=== PATIENT | female | born 1955 | race Caucasian/White ===

== ENCOUNTER 2019-10-13 08:31 | Emergency (ER) | payer OTHER ==
--- NOTE | 2019-10-13 08:54 | EDM.PDOC ---
ED HPI GENERAL MEDICAL PROBLEM - General Chief Complaint: Laceration Stated Complaint: FELL- CUT ON FOREHEAD Time Seen by Provider: 10/13/19 08:52 Source of Information: Reports: Patient, RN, RN Notes Reviewed History Limitations: Reports: No Limitations - History of Present Illness INITIAL COMMENTS - FREE TEXT/NARRATIVE: Pt presents to ER from home by POV with c/o tripping on the way to the bathroom this morning and fell to the floor cutting her forehead on the edge of the molding or the door. Denies LOC, neck pain, or any lightheadedness, chest pain or palpitations preceding the fall. Admits to a bruise on her left knee, but has full ROM and is ambulatory without pain. Denies use of Aspirin or blood thinners. Last Tetanus vaccine was in 2009. Onset: Today, Sudden Duration: Constant Location: Reports: Head Severity: Mild Improves with: Reports: None Worsens with: Reports: None Associated Symptoms: Reports: No Other Symptoms Head Pain Score (Numeric/FACES): 1 - Related Data Allergies Allergy/AdvReac Type Severity Reaction Status Date / Time Penicillins Allergy Cannot Verified 10/13/19 08:57 Remember Home Meds: Home Meds Amitriptyline HCl 30 mg PO DAILY 09/27/13 [History] Eletriptan [Relpax] 40 mg PO DAILY PRN 09/27/13 [History] Fish Oil/[place]-3 Fatty Acids [Fish Oil 1,000 MG] 2 each PO ASDIRECTED 09/27/13 [ History] Naproxen 500 mg PO ASDIRECTED PRN 09/27/13 [History] Venlafaxine [Effexor XR] 150 mg PO DAILY 09/27/13 [History] Vitamin E 400 unit PO DAILY 09/27/13 [History] traMADol HCl [Ultram] 50 mg PO ASDIRECTED 09/27/13 [History] Levothyroxine Sodium [Synthroid] 25 mcg PO DAILY 09/17/18 [History] Lisinopril 20 mg PO DAILY 09/17/18 [History] Past Medical History - Past Health History Medical/Surgical History: Denies Medical/Surgical History HEENT History: Reports: Impaired Vision Cardiovascular History: Reports: High Cholesterol, Hypertension Musculoskeletal History: Reports: Fibromyalgia - Past Surgical History GI Surgical History: Reports: Appendectomy, Cholecystectomy Female Surgical History: Reports: Hysterectomy Musculoskeletal Surgical History: Reports: Shoulder Replacement Social & Family History - Family History Family Medical History: Noncontributory - Caffeine Use Caffeine Use: Reports: Coffee, Energy Drinks, Soda, Tea - Living Situation & Occupation Living situation: Reports: with Family ED ROS GENERAL - Review of Systems Review Of Systems: Comprehensive ROS is negative, except as noted in HPI. ED EXAM, SKIN/RASH Exam: See Below Exam Limited By: No Limitations General Appearance: Alert, WD/WN, No Apparent Distress Eye Exam: Bilateral Eye: EOMI, Normal Inspection, PERRL Nose: Normal Inspection, No Blood Throat/Mouth: Normal Inspection, Normal Lips, Normal Voice, No Airway Compromise Head: Normocephalic, Other (4cm vertical linear laceraton to midline forehead/ scalp to depth of subcutaneous tissue, no active bleeding, no FB.) Neck: Normal Inspection, Supple, Non-Tender, Full Range of Motion Respiratory/Chest: No Respiratory Distress Cardiovascular: Regular Rate, Rhythm Extremities: Normal Inspection Neurological: Alert, Oriented, CN II-XII Intact, Normal Cognition, Normal Gait, No Motor/Sensory Deficits Psychiatric: Normal Affect, Normal Mood ED SKIN PROCEDURES - Laceration/Wound Repair Midline Forehead Appearance: Subcutaneous, Linear, Clean Anesthetic Type: Local Local Anesthesia - Lidocaine (Xylocaine): 1% with EPI (10cc) Local Anesthesia - Bupivicaine (Marcaine): 0.5% with EPI (20cc) Skin Prep: Chlorhexidine (Hibiciens), Saline Saline Irrigation (cc's): 250 Exploration/Debridement/Repair: Wound Explored, In a Bloodless Field, Explored to Base, Minimal Debridement, Minimally Undermined Closed with: Sutures Lac/Wound length In cm: 9 Suture Size: 4-0 Suture Type: Nylon, Running Drain Placement: No Sterile Dressing Applied: None Tetanus Status Addressed: Yes Complications: No Course - Vital Signs Last Recorded V/S: Last Vital Signs Temp 97.5 F 10/13/19 08:49 Pulse 83 10/13/19 08:49 Resp 16 10/13/19 08:49 BP 149/70 H 10/13/19 08:49 Pulse Ox 97 10/13/19 08:49 - Orders/Labs/Meds Orders: Active Orders 24 hr Category Date Time Status Vaccines to be Administered [RC] PER UNIT ROUTINE Care 10/13/19 09:03 Active Meds: Medications Discontinued Medications Generic Name Dose Route Start Last Admin Trade Name Kody PRN Reason Stop Dose Admin Bacitracin 1 dose 10/13/19 09:03 10/13/19 09:12 Bacitracin Oint 1 Gm TOP 10/13/19 09:04 1 dose ONETIME ONE Administration Bupivacaine HCl 30 ml 10/13/19 09:18 10/13/19 09:19 Marcaine 0.5% INJECT 10/13/19 09:19 20 ml ONETIME ONE Administration Bupivacaine HCl Confirm 10/13/19 09:18 10/13/19 09:20 Marcaine 0.5% Administered 10/13/19 09:19 Not Given Dose 30 ml .ROUTE .STK-MED ONE Bupivacaine HCl/Epinephrine Bitart 20 ml 10/13/19 08:56 Marcaine 0.5%/Epinephrine 1:200,000 INJECT 10/13/19 08:57 ONETIME ONE Diphtheria/Tetanus/Acell Pertussis 0.5 ml 10/13/19 09:03 10/13/19 09:13 Adacel IM 10/13/19 09:04 0.5 ml .ONCE ONE Administration Lidocaine/Epinephrine 20 ml 10/13/19 08:56 10/13/19 09:12 Xylocaine 1% With Epinephrine 1:100,000 INJECT 10/13/19 08:57 20 ml ONETIME ONE Administration Departure - Departure Time of Disposition: 09:50 Disposition: Home, Self-Care 01 Condition: Good Clinical Impression: Laceration of forehead Qualifiers: Encounter type: initial encounter Qualified Code(s): S01.81XA - Laceration without foreign body of other part of head, initial encounter Fall as cause of accidental injury at home as place of occurrence Qualifiers: Encounter type: initial encounter Qualified Code(s): W19.XXXA - Unspecified fall, initial encounter - Discharge Information *PRESCRIPTION DRUG MONITORING PROGRAM REVIEWED*: No *COPY OF PRESCRIPTION DRUG MONITORING REPORT IN PATIENT ARMAND: No Instructions: Facial Laceration Forms: ED Department Discharge Additional Instructions: Follow up in clinic in 7 to 10 days for suture removal. Sepsis Event Note - Focused Exam Vital Signs: Vital Signs Temp Pulse Resp BP Pulse Ox 10/13/19 08:49 97.5 F 83 16 149/70 H 97 Date Exam was Performed: 10/13/19 Time Exam was Performed: 09:43 - My Orders Last 24 Hours: My Active Orders 10/13/19 09:03 Vaccines to be Administered [RC] PER UNIT ROUTINE - Assessment/Plan Last 24 Hours: My Active Orders 10/13/19 09:03 Vaccines to be Administered [RC] PER UNIT ROUTINE
[2019-10-13] MEDS ORDERED: Lidocaine 1% with EPINEPHrine 1:100,000 20 ML MDV INJECT ONE (08:56)
[2019-10-13] MEDS ORDERED: Bupivacaine 0.5%/EPINEPHrine 1:200,000 10 ML SDV INJECT ONE (08:56)
[2019-10-13] MEDS ORDERED: Bacitracin Oint 1 GM U/D Packet TOP ONE (09:03)
[2019-10-13] MEDS ORDERED: Diphtheria,Pertussis(Acell),Tetanus Vaccine 0.5 ML SDV IM ONE (09:03)
[2019-10-13] MEDS ORDERED: Bupivacaine 0.5% 30 ML SDV ONE (09:18)
[2019-10-13] MEDS ORDERED: Bupivacaine 0.5% 30 ML SDV INJECT ONE (09:18)
== END 2019-10-13 09:59 | disposition home or self-care (01) ==
LOC: DL.ED 08:31
DX: S01.81XA Laceration without foreign body of other part of head, initial encounter (principal); Z23 Encounter for immunization; I10 Essential (primary) hypertension; E78.00 Pure hypercholesterolemia, unspecified; Z88.0 Allergy status to penicillin; Z79.899 Other long term (current) drug therapy; W01.10XA Fall on same level from slipping, tripping and stumbling with subsequent striking against unspecified object, initial encounter; Y92.009 Unspecified place in unspecified non-institutional (private) residence as the place of occurrence of the external cause
CPT/HCPCS: 12015; 90471; 90715; 99282; J3490